=== PATIENT | female | born 2005 | race Two or more races ===

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

== ENCOUNTER → 2025-02-20 | Outpatient (REF) | payer BC ==
[2025-02-20 18:44] LABS: ALT/SGPT 10 U/L (7.0-40); AST/SGOT 13 U/L (<34); CALCIUM LEVEL 9.2 MG/DL (8.5-10.1); CARBON DIOXIDE LEVEL 26 MMOL/L (20-31); CHLORIDE LEVEL 107 MMOL/L (98-107); CHOLESTEROL LEVEL 178 MG/DL (<200); CHOLESTEROL RISK RATIO 2.96 (<5); CREATININE FOR GFR 0.69 MG/DL (0.55-1.30); GLOMERULAR FILTRATION RATE > 90.0 (>60); LDL CHOLESTEROL 108.3 MG/DL (<100); NON-HDL-C 117.9 MG/DL; POTASSIUM SERUM 3.7 MMOL/L (3.5-5.1); SODIUM LEVEL 145 MMOL/L (136-145); TRIGLYCERIDES LEVEL 48 MG/DL (<150)
[2025-02-20 19:12] LABS: ESTIMATED AVERAGE GLUCOSE 103.0 MG/DL (60-110)
== END ==
LOC: M SFHCCLAY 14:18
PROVIDERS: ATTEND Physician Assistant
DX: Z00.00 Encounter for general adult medical examination without abnormal findings (principal); F41.1 Generalized anxiety disorder

== ENCOUNTER 2025-02-21 11:51 | Inpatient (IN) | payer BC ==
[~2025-02-21] VITALS: Ht 160 cm; Wt 45.9 kg
[2025-02-21 12:51] LABS: PLATELET COUNT, AUTOMATED 289 10^3/uL (150-450)
[2025-02-21 13:09] LABS: HCG, SERUM QUALITATIVE NEGATIVE (NEGATIVE)
[2025-02-21 13:12] LABS: AMPHETAMINES LEVEL URINE NEGATIVE (NEGATIVE); BARBITURATES URINE NEGATIVE (NEGATIVE); BENZODIAZEPINES URINE NEGATIVE (NEGATIVE); COCAINE METABOLITE URINE NEGATIVE (NEGATIVE); METHADONE URINE NEGATIVE (NEGATIVE); OPIATES URINE NEGATIVE (NEGATIVE); PHENCYCLIDINE URINE NEGATIVE (NEGATIVE)
[2025-02-21 13:13] LABS: CANNABINOIDS URINE POSITIVE (NEGATIVE)
[2025-02-21 13:31] LABS: ETHYL ALCOHOL (ETHANOL) < 0.003 % (0.000-0.010)
[2025-02-21 13:33] LABS: SALICYLATE LEVEL < 3.0 MG/DL (<30)
[2025-02-21 13:35] LABS: ALT/SGPT 14 U/L (7.0-40); AST/SGOT 14 U/L (<34); CALCIUM LEVEL 9.6 MG/DL (8.5-10.1); CARBON DIOXIDE LEVEL 24 MMOL/L (20-31); CHLORIDE LEVEL 107 MMOL/L (98-107); CREATININE FOR GFR 0.66 MG/DL (0.55-1.30); GLOMERULAR FILTRATION RATE > 90.0 (>60); POTASSIUM SERUM 3.6 MMOL/L (3.5-5.1); SODIUM LEVEL 142 MMOL/L (136-145)
[2025-02-21] MEDS ORDERED: MOM 30 ML SUSPENSION UDC PO PRN (14:50)
[2025-02-21] MEDS ORDERED: HALOPERIDOL 5 MG TAB PO PRN (14:50)
[2025-02-21] MEDS ORDERED: MAALOX 30 ML SUSP *UDC PO PRN (14:50)
[2025-02-21] MEDS ORDERED: HOME MED LIST COMPLETE! XX SCH (15:10)
[2025-02-21] MEDS: NICOTINE 14 MG/24 HR TRANSDERMAL TD SCH (16:04)
[2025-02-21] MEDS: LORazepam 1 MG TAB PO PRN (16:59)
[2025-02-21] MEDS: traZODone 50 MG TAB PO PRN (21:22)
[2025-02-22 06:32] VITALS: BP 105/60; TEMP 98.5; O2SAT 100
[2025-02-22] MEDS: buPROPion **XL** 150 MG TABLET PO SCH (13:01)
[2025-02-22 14:47] VITALS: BP_SYST 111; BP_SYST 133; BP_DIAS 81; BP_DIAS 82; TEMP 98.3; TEMP 98.9; O2SAT 100; O2SAT 92
[2025-02-23 06:31] VITALS: BP 105/55; TEMP 98.3; O2SAT 100
[2025-02-23] MEDS: IBUPROFEN 400 MG TAB PO PRN (11:10)
[2025-02-23 11:25] VITALS: BP 115/76; TEMP 98.8; O2SAT 97
[2025-02-23 15:22] VITALS: BP 120/62; TEMP 98.4; O2SAT 99
[2025-02-23] MEDS: QUEtiapine FUMARATE 50MG TAB PO SCH (21:00)
[2025-02-24 06:28] VITALS: BP 101/56; TEMP 97.6; O2SAT 100
[2025-02-24] MEDS: ESCITALOPRAM OXALATE 5 MG TABLET PO SCH (11:09)
[2025-02-24 15:44] VITALS: BP 116/69; TEMP 98.8; O2SAT 100
[2025-02-24] MEDS: ACETAMINOPHEN 325 MG TAB PO PRN (15:48)
[2025-02-25] MEDS: OLANZapine 5 MG TAB PO PRN (03:40)
[2025-02-25 06:21] VITALS: BP 106/57; TEMP 98.5; O2SAT 97
[2025-02-25] MEDS ORDERED: HYDR-3363 PO (08:59)
[2025-02-25] MEDS ORDERED: LEXA5TAB13 PO (08:59)
[2025-02-25] MEDS ORDERED: BUPR150T12 PO (08:59)
== END 2025-02-25 14:49 | disposition home or self-care (01) | DRG 756 ==
LOC: M ED 11:51 → M ED INP 14:46 → M PSY 15:28
PROVIDERS: ADMIT Internal Medicine; ATTEND Internal Medicine
DX: F41.1 Generalized anxiety disorder (principal); F33.0 Major depressive disorder, recurrent, mild; R45.851 Suicidal ideations; F41.0 Panic disorder [episodic paroxysmal anxiety]; F12.90 Cannabis use, unspecified, uncomplicated; F90.9 Attention-deficit hyperactivity disorder, unspecified type